=== PATIENT | female | born 1980 | race Caucasian/White ===

== ENCOUNTER → 2021-04-25 08:33 | Outpatient (CLI) | payer BC, SELFPAY ==
[2021-04-25 09:35] LABS: Basophils # 0.1 K/mm3 (0-0.2); Eosinophils # 0.3 K/mm3 (0.0-0.4); Hematocrit 38.3 % (37.0-47.0); Hemoglobin 11.8 g/dL (12.2-16.2); Lymphocytes % 19.9 % (10-50); Mean Corpuscular HGB Conc 30.9 g/dL (31.8-35.4); Mean Corpuscular Hemoglobin 28.4 pg (27.0-31.2); Mean Corpuscular Volume 91.9 fl (81-99); Mean Platelet Volume 8.4 fl (7.4-10.4); Monocytes # 0.3 K/mm3 (0.1-1.0); Monocytes % 5.3 % (1.7-9.3); Neutrophils # 3.3 K/mm3 (1.8-7.8); Neutrophils % 67.8 % (37.0-80.0); Platelet Count 241 K/mm3 (142-424); Red Blood Count 4.17 M/mm3 (4.20-5.40); Red Cell Distribution Width 13.9 % (11.5-17.5); White Blood Count 4.9 K/mm3 (4.8-10.8)
[2021-04-25 10:52] LABS: Chloride 109 mmol/L (98-107)
[2021-04-25 10:53] LABS: Potassium 4.6 mmoL/L (3.5-5.1); Sodium 141 mmol/L (136-145)
[2021-04-25 10:55] LABS: Blood Urea Nitrogen 14 mg/dl (7-17); Estimated Glomerular Filt Rate 42 ml/min (>60); GFR (African American) 51 ML/MIN (>60)
[2021-04-25 10:56] LABS: Anion Gap 10.6 mEq/L (5-15); Calcium 7.9 mg/dl (8.4-10.2); Carbon Dioxide 26 mmol/L (22.0-30.0); Glucose 80 mg/dl (74-100)
[2021-04-25 11:21] LABS: HCG Qualitative, Serum Negative (Negative)
== END ==
PROVIDERS: Visit Provider Nurse Practitioner Obstetrics & Gynecology
DX: D25.9 Leiomyoma of uterus, unspecified (principal); Z01.818 Encounter for other preprocedural examination; Z11.52 Encounter for screening for COVID-19; N92.0 Excessive and frequent menstruation with regular cycle; R10.2 Pelvic and perineal pain
CPT/HCPCS: 36415; 80048; 84703; 85025; C9803; U0003; U0005

== ENCOUNTER 2021-04-27 07:02 | Inpatient (IN) | payer BC, SELFPAY ==
[2021-04-25 14:33] VITALS: BMI 22.4
[2021-04-27] VITALS (24 sets, daily range): BP systolic 110–140; BP diastolic 65–87; PULSE 52–90; RESP 14–20; TEMP 36.3–43; O2SAT 94–100
--- NOTE | 2021-04-27 07:20 | HMH.PHAINT ---
home medication list verified using list from [facility]
--- NOTE | 2021-04-27 07:36 | PC.NURSE ---
RIGHT PUPIL 4, LEFT PUPIL 3. PT AWARE. ANESTHESIA TALKED TO PT ABOUT PUPIL SIZE.
--- NOTE | 2021-04-27 07:41 | P.PN_ITS ---
[facility] Anesthesia Checklist - Patient Identification Patient Identification: Arm Band - Structural Data Admitted From: Home Planned Operative Procedure/s: DEVAN - NPO Status Verified Time NPO: 00:00 - Additional verifications Anesthesia Reactions: No Hx Blood Transfusions: No Blood Transfusion Reaction: No - Airway Assessment C-Spine Mobility Assessed: Yes TMJ Mobility Assessed: Yes Dentition: Good Dentition - Neurological Assessment Level of Consciousness: Awake Hx Seizures: No Numbness or tingling in extremities: No - Anesthesia Plan Anesthesia Risk discussed: Yes Anesthesia Plan: Verified ASA Class: II Anesthesia Type: General [facility] History I have reviewed the patient's past medical history: Yes Medical History: Reports:: Anxiety, Depression Denies:: Cancer, Diabetes Mellitus Type 1, Diabetes Mellitus Type 2, Internal Pacemaker, MRSA, Seizures *Have you ever received a pneumonia vaccine?: No *Have you received a flu vaccine this season?: Yes Other Medical History: Reports: Arthritis, Unexplained Bleeding. Denies: Blood Transfusion Reaction Anesthesia experience/problems:: PONV Other Surgeries: Yes: Dilation and Curettage, Other. No: Pacemaker Amputation: No Fractures: No - *Social History Smoking Status: Former smoker Tobacco Type: cigarettes Alcohol Intake: never Alcohol Intake Frequency:: holidays/special occasions only Substance Use Type: denies use *Occupational Status:: employed Housing: house *Travel in the last 8 weeks: None - Psychiatric History Pschychiatric History:: Reports:: Anxiety, Depression Family Hx:: No significant family history
--- NOTE | 2021-04-27 09:51 | SUR.OPER ---
0948-family updated at this time
--- NOTE | 2021-04-27 10:35 | HMH.OPNOTE ---
Date of procedure: 04/27/21 Pre-op Diagnosis:: Menorrhagia, fibroid uterus, endometriosis Post-op Diagnosis:: Menorrhagia, fibroid uterus, endometriosis Procedure performed:: Total abdominal hysterectomy, left salpingo-oophorectomy, right salpingectomy Surgeon:: Jesus Burger MD Employment Security Officer(s):: Cynthia Cheney [employer] CONTROL CLERK:: Other (Oh Elizabeth) Anesthesia: GETA Estimated blood loss (mL): 150 Clinical Note:: She is a 41-year-old 1 para 0 who complains of extremely heavy painful periods. She has a history of endometriosis. An ultrasound in my office showed that she had 2 separate fibroids each about 3 cm in size. After having discussed the risks and benefits we will perform a total abdominal hysterectomy and bilateral salpingectomy. Operative findings:: She had an anteverted bulky uterus that had 2 separate fibroids one anteriorly and that was about 3 cm just above the cervix she had a second fibroid in the fundus of the uterus. The left ovary was adherent to the sigmoid colon and had a 1 cm endometrioma within it. There was chocolate colored fluid within the cyst. She had adhesions of the tube as well to the sigmoid colon on the left side. The right side appeared normal. There was one spot of endometriosis on the top of the ovary. There was a 1 mm powder burn on the rectum. I left this alone on the rectum because I was concerned about causing a disruption of the mucosa of the rectum removed this. Rest the abdomen and pelvis appeared completely normal. Operative note:: She was taken the operating room where general anesthesia was found be adequate. She is prepped draped normal sterile fashion in the supine position. A Delgado bladder. Pfannenstiel skin incision was made with knife and then carried through the underlying layer of fascia with cautery. The fascia was opened midline with cautery and extended laterally using Escalona scissors. Eloisa clamps were then applied to the superior aspect of the fascial incision which was tented up and the underlying rectus muscle dissected off using cautery. Eloisa clamps were then applied the inferior aspect of the past incision which in similar fashion was tented up and the underlying rectus muscles dissected off in cautery. The rectus muscles were then midline, and the peritoneum was identified tented up and entered sharply with Metzenbaums. The peritoneum was then opened superiorly and inferiorly with cautery with good visualization of the underlying structures. We then inserted an O'Ryan-O'Alanis self retracting retractor. The bowel was packed away with warm moist packs. The uterine cornua were then grasped with long Wendi clamps. The left round ligament was then grasped suture-ligated and cut. I opened up the peritoneum anteriorly along the bladder flap. I then fenestrated the posterior aspect of the broad ligament and isolated the utero-ovarian ligament. This was then clamped cut and doubly suture-ligated. I then isolated the uterine arteries on the left side and clamped cut and suture-ligated these. I then took down the cardinal ligaments on the left side clamping cutting and suture ligating as I went. We then turned our attention to the right side. The right round ligament was then clamped suture-ligated and cut. This was followed by opening up the peritoneum anteriorly joining up with the other side. I then fenestrated the posterior aspect of the broad ligament isolating the utero-ovarian ligament. This was clamped cut and doubly suture-ligated. We then clamped across the uterine artery it was cut and suture-ligated. Then using Yuniel clamps I took down the cardinal ligaments on the right side clamping cutting and suture ligating as I went. I then clamped across the vaginal fornices bilaterally with curved Yuniel clamps and the uterus was cut away. I then suture-ligated the vaginal fornices with Vicryl suture. I then closed the vaginal vault using running 0 Vicryl s
--- NOTE | 2021-04-27 10:43 | HMH.ANESI ---
[facility] Anesthesia Record Part I Intake, IV Amount: 1,000 Estimated blood loss (mL): 150 Urine output (mL): 400 Blood Pressure: 129/78 SaO2: 95 Pulse Rate: 80 Respiratory Rate: 14 Temperature: 98.5 F Patient is:: Drowsy Stable to PACU at:: 10:38
--- NOTE | 2021-04-27 10:50 | HMH.HP ---
*Admission Date: 04/27/21 *Chief complaint: Menorrhagia, fibroid uterus, endometriosis *History of present illness: She is a 41-year-old 1 para 0 aborta 1 who has extremely heavy, painful periods. She has been diagnosed with endometriosis in the past. She had an ultrasound in my office that showed TWo 3 cm fibroids. After having discussed the risks and benefits she elected to have a total abdominal hysterectomy and bilateral salpingectomy. [facility] History I have reviewed the patient's past medical history: Yes Medical History: Reports:: Anxiety, Depression Denies:: Cancer, Diabetes Mellitus Type 1, Diabetes Mellitus Type 2, Internal Pacemaker, MRSA, Seizures *Have you ever received a pneumonia vaccine?: No *Have you received a flu vaccine this season?: Yes Other Medical History: Reports: Arthritis, Unexplained Bleeding. Denies: Blood Transfusion Reaction Anesthesia experience/problems:: PONV Other Surgeries: Yes: Dilation and Curettage, Other. No: Pacemaker Amputation: No Fractures: No - *Social History Smoking Status: Former smoker Tobacco Type: cigarettes Alcohol Intake: never Alcohol Intake Frequency:: holidays/special occasions only Substance Use Type: denies use *Occupational Status:: employed Housing: house *Travel in the last 8 weeks: None - Psychiatric History Pschychiatric History:: Reports:: Anxiety, Depression Family Hx:: No significant family history Review of Systems - Review of Systems Review of systems:: pertinent systems reviewed and negative unless documented below Meds Home Medications Medication Instructions Recorded Confirmed Type alprazolam 1 mg tablet 0.5 - 1 mg PO QIDP PRN tab 04/03/21 04/27/21 History etanercept 50 mg/mL (1 mL) 50 mg SQ WEEKLY 04/03/21 04/27/21 History subcutaneous pen injector nicotine 21 mg/24 hr daily 1 patch TRANSDERMA DAILY each 04/03/21 04/27/21 History transdermal patch Allergies Allergy/AdvReac Type Severity Reaction Status Date / Time No Known Allergies Allergy Verified 04/27/21 07:02 Exam Vital signs and Labs for Last 24 Hours: Temp Pulse Resp BP Pulse Ox 98.5 F 80 14 129/78 100 04/27/21 10:43 04/27/21 10:43 04/27/21 10:43 04/27/21 10:43 04/27/21 07:05 I & O for Last 24 hours: Intake & Output 04/24/21 04/25/21 04/26/21 04/27/21 11:59 11:59 11:59 11:59 Intake Total 1000 / 1000 Balance 1000 / 1000 Weight 143 lb - Constitutional no acute distress - *Routine HEENT Exam Head: Present: normocephalic Eye: Present: EOMI, PERRL ENT: Present: mucous membranes moist - *Routine Neck Exam Present: supple, full ROM - *Routine Respiratory Exam Absent: accessory muscle use (good air entry bilaterally), wheezes, crackles - *Routine Cardiovascular Exam Present: RRR. Absent: murmur - *Routine Abdominal Exam Present: soft, normoactive bowel sounds. Absent: tenderness, rebound, guarding, mass - *Routine Rectal Exam Rectal:: deferred - *Routine Genitalia Exam Genitalia:: normal female - *Routine Extremities Exam Present: full ROM. Absent: cyanosis, edema, calf tenderness - *Routine Skin Exam Present: intact (good color) - *Routine Neurological Exam Present: alert, oriented X3 - Routine Psychiatric Exam Present: normal affect - Detailed Rectal Exam Patient deferred: visual exam, digital exam - Detailed Exam Patient deferred: external exam, groin exam, perineal exam Assessment and Plan (1) Menorrhagia Status: Acute Category: Medical Code(s): N92.0 - Excessive and frequent menstruation with regular cycle (2) Fibroids, intramural Status: Acute Category: Medical Code(s): D25.1 - Intramural leiomyoma of uterus (3) Endometriosis Status: Acute Category: Medical Code(s): N80.9 - Endometriosis, unspecified - Assessment and plan all Dx Assessment and Plan for all problems:: She is admitted for total abdominal hysterectomy and bilateral salpingectomy.
--- NOTE | 2021-04-27 11:39 | SUR.PHASEI ---
1124- detailed report called to jer christian on OB floor. 1126- pt left in stable condition with jer christian on OB floor at this time
--- NOTE | 2021-04-27 13:24 | P.PN_ITS ---
[facility] Anesthesia Record Part II Discharge Time: 11:25 Destination: Obstetric PACU nurse assessment reviewed?: Yes Patient Condition:: Good Anesthesia Complications:: None Swallowing reflex intact?: Yes Cyanosis?: No Blood Pressure: 124/71 Pulse Rate: 76 Temperature: 98.7 F Mental Status: Alert & Oriented Pain level:: 4 Nausea and/or vomitting:: None Intake, IV Amount: 0
[2021-04-27 13:27] LABS: Microscopic,Cath URINE MICROSCOPIC (MICROSCOPIC)
[2021-04-27 14:01] LABS: Appearance,Urine/Cath CLEAR (Clear); Bilirubin,Cath Negative (Negative); Blood, Urine/Cath Negative (Negative); Color,Urine/Cath YELLOW (Yellow); Glucose,Urine/Cath (UA) Negative (Negative); Ketones,Urine/Cath Negative (Negative); Leukocyte Esterase,Cath Negative (Negative); Nitrate,Cath Negative (Negative); Protein,Urine/Cath Negative (Negative); Specific Gravity, Urine/Cath <= 1.005 (1.005-1.030); Urobilinogen,Cath 0.2 EU/dl (0.2)
[2021-04-27 16:50] LABS: Hematocrit 34.5 % (37.0-47.0); Hemoglobin 11.1 g/dL (12.2-16.2)
--- NOTE | 2021-04-27 22:45 | PC.NURSE ---
patient up to bathroom. steady gait. x1 assist. unable to void. small amount of bright red vaginal bleeding noted. jacklyn-pad applied with underwear. pt returned to bed. no needs voiced at this time. call light in reach
[2021-04-28] VITALS: BP 116/63; PULSE 101; RESP 16; TEMP 37.3; O2SAT 99
[2021-04-28 04:15] VITALS: BP 121/73; PULSE 89; RESP 17; TEMP 37.3; O2SAT 98
--- NOTE | 2021-04-28 06:56 | P.CONPHA_ITS ---
[facility] Pharmacy VTE Monitoring - Patient Demographics Admission date: 04/27/21 Report Date: 04/28/21 Time: 06:56 Allergies/Adverse Reactions: Patient Allergies No Known Allergies Allergy (Verified 04/27/21 07:02) Height: 1.7 m Weight: 64.864 kg Patient Problems: Current Active Problems Menorrhagia (Acute) Fibroids, intramural (Acute) Endometriosis (Acute) - VTE Risk Labs: VTE Related Lab Results Hgb 11.1 g/dL (12.2-16.2) L 04/27/21 16:20 Hct 34.5 % (37.0-47.0) L 04/27/21 16:20 Clinical Trial Participant: No - Prophylaxis VTE Prophylaxis Ordered?: Yes Types of VTE Prophylaxis: IPCS Knee High (post op) Location of Applied Device: Bilateral Lower Extremeties
[2021-04-28 07:02] LABS: Basophils % 0.6 % (0.1-2.0); Eosinophils # 0.1 K/mm3 (0.0-0.4); Hematocrit 31.9 % (37.0-47.0); Hemoglobin 10.3 g/dL (12.2-16.2); Lymphocytes # 1.1 K/mm3 (0.7-4.5); Lymphocytes % 22.9 % (10-50); Mean Corpuscular HGB Conc 32.3 g/dL (31.8-35.4); Mean Corpuscular Hemoglobin 28.8 pg (27.0-31.2); Mean Corpuscular Volume 89.4 fl (81-99); Mean Platelet Volume 8.1 fl (7.4-10.4); Monocytes # 0.3 K/mm3 (0.1-1.0); Monocytes % 5.2 % (1.7-9.3); Neutrophils # 3.5 K/mm3 (1.8-7.8); Neutrophils % 70.4 % (37.0-80.0); Platelet Count 236 K/mm3 (142-424); Red Blood Count 3.57 M/mm3 (4.20-5.40); White Blood Count 4.9 K/mm3 (4.8-10.8)
[2021-04-28 07:25] LABS: Anion Gap 6.8 mEq/L (5-15); Blood Urea Nitrogen 13 mg/dl (7-17); Calcium 7.9 mg/dl (8.4-10.2); Carbon Dioxide 25 mmol/L (22.0-30.0); Chloride 111 mmol/L (98-107); Creatinine Clearance Estimated 77 mL/min (50-200); Estimated Glomerular Filt Rate 61 ml/min (>60); GFR (African American) 74 ML/MIN (>60); Glucose 96 mg/dl (74-100); Potassium 3.8 mmoL/L (3.5-5.1); Sodium 139 mmol/L (136-145)
[2021-04-28 09:20] VITALS: BP 108/91; PULSE 105; RESP 18; TEMP 36.8; O2SAT 98
--- NOTE | 2021-04-28 09:24 | P.PN_ITS ---
Internal Medicine - PN: Subj *Date: 04/28/21 *Time: 09:24 Interval history: She is doing very well this morning. She is ambulating and drinking fluids. She denies any chest pain, shortness of breath or calf tenderness. She does have some shoulder pain bilaterally. I told her this was from the irritation of her diaphragm. She says she has not passed any gas yet. Her Delgado catheter is out and she is voiding well. Her hemoglobin is stable. Exam Vital signs and Labs for Last 24 Hours: Temp Pulse Resp BP Pulse Ox 99.2 F 89 17 121/73 98 04/28/21 04:15 04/28/21 04:15 04/28/21 04:15 04/28/21 04:15 04/28/21 04:15 Laboratory Results - last 24 hr 04/27/21 09:10: Urine Color Yellow, Urine Appearance Clear, Urine pH 6.0, Ur Specific [place] <= 1.005, Urine Protein Negative, Urine Glucose (UA) Negative, Urine Ketones Negative, Urine Blood Negative, Urine Nitrate Negative, Urine Bilirubin Negative, Urine Urobilinogen 0.2, Ur Leukocyte Esterase Negative, Urine RBC None, Urine WBC None, Ur Squamous Epith Cells None, Urine Bacteria None 04/27/21 16:20: Hgb 11.1 L, Hct 34.5 L 04/28/21 06:45: WBC 4.9, RBC 3.57 L, Hgb 10.3 L, Hct 31.9 L, MCV 89.4, MCH 28.8, MCHC 32.3, RDW 14.0, Plt Count 236, MPV 8.1, Neut % (Auto) 70.4, Lymph % (Auto) 22.9, [place] % (Auto) 5.2, Eos % (Auto) 1.0, Baso % (Auto) 0.6, Neut # (Auto) 3.5, Lymph # (Auto) 1.1, [place] # (Auto) 0.3, Eos # (Auto) 0.1, Baso # (Auto) 0.0 04/28/21 06:45: Sodium 139, Potassium 3.8, Chloride 111 H, Carbon Dioxide 25, Anion Gap 6.8, BUN 13, Creatinine 1.00 D, Estimated Creat Clear 77, Estimated GFR 61, Est GFR ( Amer) 74 D, Glucose 96, Calcium 7.9 L I & O for Last 24 hours: Intake & Output 04/25/21 04/26/21 04/27/21 04/28/21 11:59 11:59 11:59 11:59 Intake Total 1000 / 1000 0 / 0 Output Total 1400 / 1400 Balance 1000 / 1000 -1400 / -1400 Weight 143 lb - Constitutional no acute distress - *Routine HEENT Exam Head: Present: normocephalic Eye: Present: EOMI, PERRL ENT: Present: mucous membranes moist - *Routine Respiratory Exam Present: CTA bilaterally - *Routine Cardiovascular Exam Present: RRR - *Routine Abdominal Exam Present: soft, normoactive bowel sounds. Absent: tenderness Comments: Her incision is clean dry. - *Routine Extremities Exam Absent: cyanosis, clubbing, edema, calf tenderness Assessment and Plan (1) Menorrhagia Status: Acute Category: Medical Code(s): N92.0 - Excessive and frequent menstruation with regular cycle (2) Fibroids, intramural Status: Acute Category: Medical Code(s): D25.1 - Intramural leiomyoma of uterus (3) Endometriosis Status: Acute Category: Medical Code(s): N80.9 - Endometriosis, unspecified - Assessment and plan all Dx Assessment and Plan for all problems:: She continues to do very well. We will plan to send her home tomorrow.
[2021-04-28 14:40] VITALS: BP 121/85; PULSE 99; RESP 18; O2SAT 99
--- NOTE | 2021-04-28 19:19 | PC.NURSE ---
Report given to KELSEY Call.
[2021-04-28 20:00] VITALS: BP 109/73; PULSE 80; RESP 17; TEMP 36.5; O2SAT 99
--- NOTE | 2021-04-29 04:19 | PC.NURSE ---
PT HAS RESTED WELL THIS SHIFT. VS STABLE CHARTED. LUNGS CTA, DRESSING CDI, NO ACUTE CHANGES. WILL CONTINUE TO MONITOR.
[2021-04-29 04:47] VITALS: BP 118/52; PULSE 71; RESP 18; TEMP 36.7; O2SAT 99
[2021-04-29 05:59] VITALS: RESP 18
--- NOTE | 2021-04-29 07:14 | PC.NURSE ---
report given to Robel COLE
[2021-04-29 07:56] VITALS: BP 110/71; PULSE 91; RESP 18; TEMP 36.6; O2SAT 98
--- NOTE | 2021-04-29 08:45 | PC.NURSE ---
DRESSING REMOVED AND CLEANSED PER PROTOCOL. BRUISING NOTED TO RIGHT SIDE. NO S/S/ OF INFECTION. PATIENT VERY ANXIOUS ABOUT LEAVING DRESSING OFF- EDUCATED HER ON THIS. NO OTHER NEEDS.
--- NOTE | 2021-04-29 09:37 | PC.NURSE ---
DR WILCOX HERE ROUNDING
--- NOTE | 2021-04-29 09:47 | P.DS_ITS ---
General - General Admission date:: 04/27/21 Discharge date: 04/29/21 HPI HPI: She is a 41-year-old 1 para 0 aborta 1 who has extremely heavy, painful periods. She has been diagnosed with endometriosis in the past. She had an ultrasound in my office that showed TWo 3 cm fibroids. After having discussed the risks and benefits she elected to have a total abdominal hysterectomy and bilateral salpingectomy. Hospital Course Hospital Course: On April 27, 2021 she underwent a total abdominal hysterectomy, left salpingo- oophorectomy and right salpingectomy. She still has her right ovary. She had endometriosis and adhesions on the left ovary. She has done well postoperatively and has remained afebrile with her hospitalization. She is eating and drinking and ambulating. Her pain is reasonably well controlled. She did have a T AP block. She is discharged home to follow-up in approximately 2 weeks time. She will continue with her Percocet 5/325 #24 tablets. She was given the usual instruc tions with respect to limiting her activity, driving and sexual activity. She was given instructions with respect to wound care. Her condition on discharge is stable and improved. Objective Vital signs: Temp Pulse Resp BP Pulse Ox 97.8 F 91 H 18 110/71 98 04/29/21 07:56 04/29/21 07:56 04/29/21 07:56 04/29/21 07:56 04/29/21 07:56 no acute distress - *Routine HEENT Exam Head: Present: normocephalic Eye: Present: EOMI, PERRL ENT: Present: mucous membranes moist - *Routine Abdominal Exam Present: soft, normoactive bowel sounds. Absent: tenderness Comments: Her incision is clean dry DS: Diagnosis - Discharge Diagnosis (1) Menorrhagia Status: Acute (2) Fibroids, intramural Status: Acute (3) Endometriosis Status: Acute Discharge Plan - Patient Discharge Instructions ACTIVITY: No heavy lifting DIET: continue same diet Additional Instructions: KEEP INCISION DRY, CLEANSE TWICE DAILY, NO TUB BATHS FOR 6 WEEKS. NOTHING IN THE VAGINA FOR 6 WEEKS, NO HEAVY LIFTING. Patient Instructions: Hysterectomy -- Open Surgery, DI for Surgical Site Infection, DI for Postoperative Pain - Follow up Plan Follow up with: Jesus Burger MD [Staff Physician] - 05/11/21 9:00 am Disposition: Home, Self-Care Condition at discharge:: Stable Home Medications: Home Medications Medication Instructions Recorded Confirmed Type alprazolam 1 mg tablet 0.5 - 1 mg PO QIDP PRN tab 04/03/21 04/27/21 History etanercept 50 mg/mL (1 mL) 50 mg SQ WEEKLY 04/03/21 04/27/21 History subcutaneous pen injector nicotine 21 mg/24 hr daily 1 patch TRANSDERMA DAILY each 04/03/21 04/27/21 History transdermal patch Oxycodone HCl/Acetaminophen 1 tab PO Q4-6H PRN #24 tablet 04/29/21 Rx [Percocet 5/325mg tablet] Prescriptions/Medication Reconciliation: New Oxycodone HCl/Acetaminophen [Percocet 5/325mg tablet] 1 tab PO Q4-6H PRN #24 tablet PRN Reason: Severe Pain Continued alprazolam 1 mg tablet 0.5 - 1 mg PO QIDP PRN tab PRN Reason: Anxiety nicotine 21 mg/24 hr daily transdermal patch 1 patch TRANSDERMA DAILY each etanercept 50 mg/mL (1 mL) subcutaneous pen injector 50 mg SQ WEEKLY - Problem Reconciliation Problems Reviewed?: Yes
--- NOTE | 2021-04-29 10:00 | PC.NURSE ---
discharge education provided. encouraged questions. went over wound care, infections, pain management. she v/u
--- NOTE | 2021-05-01 14:47 | CARE MANAGER ---
CM called and spoke with patient regarding post discharge status. Patient states that she is doing well, but is awaiting a phone call from Dr. Burger's office regarding increased pain that requires pain medication every 4 hours. Patient plans to attend follow up appt on 05/[address] Burger.
== END 2021-04-29 10:15 | disposition home or self-care (01) | DRG 743 ==
LOC: OB 04-28 01:08
PROVIDERS: Admitting Provider Nurse Practitioner Obstetrics & Gynecology; PCP Internal Medicine; Visit Provider Nurse Practitioner Obstetrics & Gynecology
PROC: 0UT90ZZ Resection of Uterus, Open Approach (ICD-10-PCS; CPT 58150; principal; 2021-04-27 08:45)
DX: D25.9 Leiomyoma of uterus, unspecified (principal); N92.0 Excessive and frequent menstruation with regular cycle; N80.9 Endometriosis, unspecified; F41.9 Anxiety disorder, unspecified; F32.A Depression, unspecified; M19.90 Unspecified osteoarthritis, unspecified site; Z87.891 Personal history of nicotine dependence
CPT/HCPCS: 58150; 36415; 80048; 81001; 85014; 85018; 85025; 96374; J2405; J2710